=== PATIENT | female | born 1990 | race Caucasian/White ===

== ENCOUNTER 2016-06-20 00:04 | Emergency (ER) | payer OTHER ==
[~2016-06-20] VITALS: Ht 154.9 cm; Wt 44.9 kg
[2016-06-20 00:09] VITALS: BP 123/77
--- NOTE | 2016-06-20 01:19 | NUR ---
CALLED PT IN [place], NO REPONSE
--- NOTE | 2016-06-20 01:47 | NUR ---
CALLED PT IN [place], NO REPONSE
== END 2016-06-20 01:47 | disposition left against medical advice (07) ==
LOC: ER 00:08
DX: Z53.21 Procedure and treatment not carried out due to patient leaving prior to being seen by health care provider (principal)
CPT/HCPCS: A4606; Z7610